=== PATIENT | male | born 1935 | race Caucasian/White ===

== ENCOUNTER → 2016-09-22 | Outpatient (CLI) | payer MEDICARE, BC ==
--- NOTE | 2016-09-22 10:48 | XR ---
Right ankle HISTORY: Ganglion cyst 3 views of the right ankle on 4 images No comparisons There is hypertrophic change present at the distal fibula and tibia. Small ossific densities are pres ent distal to the medial malleolus which are well-corticated and likely to be chronic. Joint space lo ss present at the tibiotalar joint. Osteochondral defect suspected along the medial ankle mortise. Al ignment is maintained. Small ossific densities also present distal to the fibula. Soft tissue calcifi cations are thought likely to be vascular in the distal tibia, ankle. There is a plantar calcaneal sp ur. Enthesophyte present at the insertion Achilles tendon. Degenerative changes are present at the in tertarsal joints. 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 Consider ankle MRI. Additional findings above.
== END | disposition home or self-care (01) ==
LOC: RADXRMAIN 09:08
PROVIDERS: ATTEND Podiatrist Foot Surgery
DX: M19.071 Primary osteoarthritis, right ankle and foot (principal); M21.961 Unspecified acquired deformity of right lower leg; Z87.828 Personal history of other (healed) physical injury and trauma